=== PATIENT | male | born 1955 | race African-American/Black ===

== ENCOUNTER 2024-09-30 17:03 | Inpatient (IN) | payer OTHER ==
[2024-09-30 17:30] VITALS: BMI 22.2
[2024-09-30] MEDS ORDERED: hydrOXYzine PAMOATE 25 MG CAPSULE (FP) PO PRN (18:26)
[2024-09-30] MEDS ORDERED: ACETAMINOPHEN 325 MG TABLET (FP) PO PRN (18:26)
[2024-09-30] MEDS ORDERED: BENZOCAINE/MENTHOL (CHLORASEPTIC ) LOZENGE MM PRN (18:26)
[2024-09-30] MEDS ORDERED: ONDANSETRON *ODT* 4 MG TABLET SL PRN (18:26)
[2024-09-30] MEDS ORDERED: NALOXONE (NARCAN) HCL 4 MG/0.1 ML SPRAY NS PRN (18:26)
[2024-09-30] MEDS ORDERED: guaiFENesin 600 MG TABLET.ER (FP) PO PRN (18:26)
[2024-09-30] MEDS ORDERED: NICOTINE POLACRILEX 2 MG GUM BUC PRN (18:26)
[2024-09-30] MEDS ORDERED: MAGNESIUM HYDROX 2400MG/30ML ORAL SUSPENSION 30 ML CUP PO PRN (18:26)
[2024-09-30] MEDS ORDERED: POLYETHYLENE GLYCOL (HEALTHYLAX) 3350 17 GM PACKET PO PRN (18:26)
[2024-09-30] MEDS ORDERED: MAG HYDROX/AL HYDROX/SIMETH 30 ML UNIT-DOSE CUP PO PRN (18:26)
[2024-09-30] MEDS ORDERED: BENZONATATE 200 MG CAPSULE PO PRN (18:26)
[2024-09-30] MEDS ORDERED: LOPERAMIDE HCL 2 MG CAPSULE PO PRN (18:26)
[2024-09-30] MEDS ORDERED: cloNIDine HCL 0.1 MG TABLET PO PRN (18:29)
[2024-09-30] MEDS ORDERED: methaDONE HCL 10 MG TABLET (FOR DETOX USE ONLY) PO PRN (18:29)
[2024-09-30] MEDS ORDERED: methaDONE HCL 10 MG TABLET (FOR DETOX USE ONLY) ONE (20:05)
[2024-09-30] MEDS: methaDONE HCL 10 MG TABLET (FOR DETOX USE ONLY) PO ONE (20:11)
[2024-09-30] MEDS: MELATONIN 5 MG TABLETS PO SCH (21:16)
[2024-09-30] MEDS: THIAMINE 100 MG TABLET PO SCH (21:16)
[2024-10-01] MEDS: TAMSULOSIN HCL 0.4 MG CAP PO SCH (08:25)
[2024-10-01] MEDS: PRENATAL VITAMINS W/ FOLIC ACID TABLET (FP) PO SCH (09:47)
[2024-10-01] MEDS: NICOTINE 14 MG/24 HOURS TOPICAL PATCH TD SCH (09:47)
[2024-10-01 10:54] LABS: HEMATOCRIT 42.8 % (40.1-51.0); HEMOGLOBIN 13.7 g/dL (13.7-17.5); MEAN CELL VOLUME 95.5 fl (79.0-92.2); MEAN PLT VOLUME 11.3 fl (9.4-12.4); PLATELET COUNT # 164 x10^3/uL (163-337); RDW 13.8 % (12.2-16.6)
[2024-10-01 11:08] LABS: CHLORIDE 109 mmol/L (98-107); POTASSIUM 3.9 mmol/L (3.5-5.1); SODIUM 142 mmol/L (136-145)
[2024-10-01 11:13] LABS: ALBUMIN 3.1 g/dl (3.4-5.0); ANION GAP 7 mmol/L (4-13); BLOOD UREA NITROGEN 24.7 mg/dL (7-18); CO2 26 mmol/L (21-32)
[2024-10-01 11:14] LABS: GLUCOSE,RANDOM 104 mg/dL (74-106)
[2024-10-01 11:16] LABS: SGPT/ALT 17 U/L (13-61)
[2024-10-01 11:17] LABS: CREATININE 1.4 mg/dL (0.55-1.3); SGOT/AST 17 U/L (15-37)
[2024-10-01 11:18] LABS: BILIRUBIN,TOTAL 0.6 mg/dL (0.2-1); TOT PROT 6.1 g/dl (6.4-8.2)
[2024-10-01 11:19] LABS: ALK PHOS 70 U/L (45-117)
[2024-10-02] MEDS: methaDONE HCL 10 MG TABLET (FOR DETOX USE ONLY) PO ONE (10:30)
[2024-10-04 09:04] LABS: POTASSIUM 4.1 mmol/L (3.5-5.1)
[2024-10-04 09:28] LABS: BLOOD UREA NITROGEN 11.1 mg/dL (7-18)
[2024-10-04] MEDS: methaDONE HCL 10 MG TABLET (FOR DETOX USE ONLY) PO ONE (09:38)
[2024-10-04 16:57] VITALS: RESP 16
[2024-10-05 05:59] VITALS: BP 121/81; PULSE 78; TEMP 97.8
== END 2024-10-05 09:20 | disposition other institution (70) | DRG 897 ==
LOC: YASAS 17:03 → Y3N 19:49
PROVIDERS: ADMIT Allergy & Immunology; ATTEND Allergy & Immunology
PROC: HZ2ZZZZ Detoxification Services for Substance Abuse Treatment (ICD-10-PCS; principal; 2024-09-30)
DX: F11.23 Opioid dependence with withdrawal (principal); F14.20 Cocaine dependence, uncomplicated; F12.20 Cannabis dependence, uncomplicated; F17.210 Nicotine dependence, cigarettes, uncomplicated; F41.9 Anxiety disorder, unspecified; B35.1 Tinea unguium; N40.0 Benign prostatic hyperplasia without lower urinary tract symptoms
CPT/HCPCS: 36415; 80048; 80053; 80305; 80307; 85027; 86780; 93005; 93010